=== PATIENT | male | born 1975 | race Caucasian/White ===

== ENCOUNTER 2025-06-08 09:41 | Outpatient (REF) | payer OTHER, SELFPAY ==
--- NOTE | 2025-06-08 | EMG_ITS ---
Chief complaint: Numbness fourth and fifth digit on the left. Cervical spondylosis Referred by:?Jania SHAHID Procedure done: Bilateral upper extremities NCS/EMG Bilateral median and ulnar motor studies were performed with F responses. Bilateral median and ulnar mixed sensory and ortho digit sensory, median lateral antecubital brachial sensory and radial sensory studies were performed and needle examination was performed. Findings: Median and ulnar distal latencies, amplitudes, and conduction velocities did not reveal any significant abnormality. Late responses were normal. Sensory studies also did not reveal any significant abnormality. Needle examination was unremarkable. Impression: This is an unremarkable study with no evidence of median or ulnar neuropathy or a proximal lesion. [place] [id number] 2 extremities MTDD
== END 2025-06-08 09:42 | disposition home or self-care (01) ==
LOC: HO.NEURO 09:41
PROVIDERS: PCP Internal Medicine; Visit Provider Physician Assistant
DX: M47.812 Spondylosis without myelopathy or radiculopathy, cervical region (principal)
CPT/HCPCS: 95886; 95913

== ENCOUNTER → 2025-06-08 10:00 | Outpatient (BNV) | payer OTHER, SELFPAY | PROVIDERS: PCP Internal Medicine; Visit Provider Psychiatry & Neurology Neurology | DX: M47.812 Spondylosis without myelopathy or radiculopathy, cervical region (principal) | CPT/HCPCS: 95886; 95913 ==